=== PATIENT | female | born 2005 ===

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

== ENCOUNTER 2023-11-24 22:22 | Emergency (ER) | payer SELFPAY ==
[2023-11-24] MEDS ORDERED: Morphine 4 MG/ML VIAL ONE (22:50)
[2023-11-24] MEDS ORDERED: Ondansetron PF 4 MG/2 ML Vial ONE (22:50)
[2023-11-24] MEDS ORDERED: diphenhydrAMINE 50 MG/ML VIAL ONE (23:03)
[2023-11-24 23:15] LABS: #Basophils Less than 0.03 10x3/uL (0.0-0.2); %Basophils 0.1 % (0.0-1.0); %Lymphocytes 12.8 % (28.0-48.0); %Monocytes 2.9 % (0.0-4.0); %Neutrophils 82.8 % (31.0-61.0); Hematocrit 54.8 % (36.0-47.0); Mean Corpuscular HGB CONC 32.8 g/dL (32.0-36.0); Mean Corpuscular Hemoglobin 27.2 pg (25.0-35.0); Mean Corpuscular Volume 82.8 fL (78.0-98.0); Mean Platelet Volume 9.2 fL (7.4-10.4); Platelet Count 419 10x3/uL (130-400); RBC Distribution Width 16.4 % (11.5-14.5); Red Blood Cell (RBC) Count 6.62 mill/uL (4.00-5.20)
[2023-11-24 23:49] LABS: ALT (SGPT) 17 U/L (8-55); AST (SGOT) 10 U/L (5-30); Albumin 4.1 g/dL (3.5-5.0); Alkaline Phosphatase 89 U/L (40-100); Anion Gap 19 mmol/L (10-20); BUN (Urea Nitrogen) 13 mg/dL (8.4-21.0); Bilirubin, Total 1.1 mg/dL (0.2-1.2); CK (CPK) 26 U/L (29-168); Calc. Creatinine Clearance 0 mL/min (70-130); Calcium 9.7 mg/dL (7.8-10.44); Carbon Dioxide 17 mmol/L (22-29); Chloride 104 mmol/L (98-107); Estimated GFR 104; Glucose 170 mg/dL (70-105); Lipase 5 U/L (8-78); Potassium 3.5 mmol/L (3.5-5.1); Protein, Total 8.1 g/dL (6.0-8.3); Sodium 136 mmol/L (136-145)
[2023-11-25 00:22] LABS: Bilirubin Negative (Negative); Blood, Urine Trace (Negative); Glucose, Urine (Dipstick) Negative (Negative); Ketone, Urine Trace mg/dL (Negative); Leukocyte Negative (Negative); Nitrite Negative (Negative); Protein, Urine (Dipstick) 100 mg/dL (Neg-Trace); Urobilinogen 0.2 mg/dL (Less than 2)
[2023-11-25 00:23] LABS: Clarity Clear (Clear); Specific Gravity, Urine 1.023 (1.002-1.036)
[2023-11-25 00:24] LABS: Bacteria/HPF Rare-Few HPF (None Seen); CAUTI Indications for Culture Dysuria,urgency,freq; WBC/HPF 0-3 HPF (0-3)
[2023-11-25 00:25] LABS: Pregnancy Test - Urine (BHCG) Negative (Negative); Pregu Control Background? CLEAR/WHITE (CLR/WHITE); Pregu Control Bar Appear? YES (CONTROL BAR); Specific Gravity 1.023 (1.002-1.036); Urine Culture Reflex No No
[2023-11-25 00:26] LABS: BHCG - Serum Negative (NEGATIVE); Pregs Control Background? CLEAR/WHITE (CLR/WHITE); Pregs Control Bar Appear? YES (CONTROL BAR)
[2023-11-25] MEDS ORDERED: Iopamidol-370 76% 500 ML MDV (1 ML CHARGE) ONE (11:59)
== END 2023-11-25 02:29 | disposition home or self-care (01) ==
LOC: ERS 22:22
DX: E86.0 Dehydration (principal); R11.2 Nausea with vomiting, unspecified
CPT/HCPCS: 36415; 74177; 80053; 81001; 81025; 82550; 83690; 84703; 85025; 96374; 96375; J1200; J2270; J2405; Q9967